=== PATIENT | male | born 1985 | race Caucasian/White ===

== ENCOUNTER 2024-01-24 16:05 | Emergency (ER) | payer SELFPAY ==
[2024-01-24 16:09] VITALS: BP 137/95; PULSE 68; RESP 17; TEMP 36.6; O2SAT 98; BMI 22.9
--- NOTE | 2024-01-24 16:25 | ED_ITS ---
HPI - Nausea/Vomiting/Diarrhea 2 General: Chief complaint: Nausea/Vomiting/Diarrhea Stated complaint: N/V Time Seen by Provider: 01/24/24 16:12 Source: patient Mode of arrival: ambulatory Limitations: no limitations History of Present Illness: 38-year-old male who states that he has been having some nausea and vomiting for the last week. States he had some mild epigastric discomfort times he denies any pain currently. He denies any diarrhea he denies any worse improved factors denies any fevers. Associated nausea: Yes Associated symtoms: Reports nausea; Denies chest pain, dysuria or headache(s) Related Data Previous Rx's Medication Instructions Recorded ondansetron 4 mg disintegrating 4 mg PO Q6H PRN nausea and 01/24/24 tablet vomiting #14 tabs Allergies Allergy/AdvReac Type Severity Reaction Status Date / Time No Known Allergies Allergy Verified 01/24/24 16:12 Review of Systems 2 Const: Denies: fever(s), chills, body aches or change in appetite ENMT: Denies: throat pain or dental pain Card: Denies: chest pain Resp: Denies: dyspnea GI: Reports: nausea and vomiting; Denies: abdominal pain or diarrhea : Denies: dysuria Musc: Denies: neck pain or back pain Skin/Breast: Denies: rash Neuro: Denies: headache(s) Physical Exam 2 Const: COMMON NORMALS: no acute distress, patient oriented x3 and healthy appearing HENMT: COMMON NORMALS: normocephalic and atraumatic HEAD & SCALP: n ormocephalic and atraumatic Neck/C-Spine: COMMON NORMALS: full ROM and supple Chest: COMMONS NORMALS: normal inspection of the chest Resp: COMMON NORMALS: normal respiratory effort Cardio: COMMON NORMALS: regular rate, regular rhythm and No murmurs present (Cardio) RATE: regular rate RHYTHM: regular rhythm GI: COMMON NORMALS: Normal to inspection, nondistended, normoactive bowel sounds present, Soft to palpation, non-tender and no masses PALPATION: Yes Soft to palpation Extremity: COMMON NORMALS: normal to inspection and full ROM Neuro: COMMON NORMALS: patient oriented x3, moves all extremities and no focal motor deficits Psych: COMMON NORMALS: mental status grossly normal, Normal thought process present and cooperative THOUGHT PROCESS: Normal thought process present Skin: COMMON NORMALS: no rashes or lesions noted and no wounds GENERAL SKIN EXAM: no rashes or lesions noted Course 2 Vital Signs: Vital signs: Vital Signs Temperature 97.9 F 01/24/24 16:09 Pulse Rate 60 01/24/24 18:00 Respiratory Rate 16 01/24/24 18:00 Blood Pressure 160/109 01/24/24 18:00 Pulse Oximetry 100 01/24/24 18:00 Oxygen Delivery Me thod Room Air 01/24/24 16:09 MDM - Nausea/Vomiting/Diarrhea Medical Decision Making Patient presents here with vomiting send some slight abdominal pain as well lab work imaging here is normal he is tolerating p.o. here after Zofran he is stable for discharge we will prescribe Zofran for home he is follow-up with PCP return if worsening. Medical Records I reviewed the patient's medical records. Lab Data I reviewed the patient's lab results. 01/24/24 16:31 01/24/24 16:31 Radiology Impressions Abdomen/Pelvis CT 01/24/24 17:[address]: [address] evidence of acute intra-abdominal or pelvic pathology. 2. Additional findings, as above. COMMENTS: Consistent with the [employer]'s Incidental Findings Committee white paper (J Am Micah Radiol 2018): Any incidental renal lesion less than 1 cm or classified as too small to characterize, or any incidental cystic renal lesion characterized as simple-appearing, is likely benign. No follow-up imaging is recommended for these lesions per consensus recommendations based on imaging criteria. Laboratory Results WBC 8.76 10^3/uL (3.29-11.43) 01/24/24 16:31 RBC 5.20 10^6/uL (3.85-5.65) 01/24/24 16:31 Hgb 16.30 g/dL (11.27-16.99) 01/24/24 16:31 Hct 46.6 % (37-53) 01/24/24 16:31 MCV 89.6 fl (82-101) 01/24/24 16:31 MCH 31.3 pg (27-33) 01/24/24 16:31 MCHC 35.0 g/dL (30-55) 01/24/24 16:31 RDW 12.0 % (12.1-15.1) L 01/24/24 16:31 Plt Count 260 10^3/cmm (157-399) 01/24/24 16:31 MPV 10.9 fL (7.4-10.4) H 01/24/24 16:31 Neut % (Auto) 47.0 % 01/24/24 16:31 Lymph % (Auto) 39.2 % 01/24/24 16:31 [place] % (Auto) 10.5 % 01/24/24 16:31 Eos % (Auto) 2.7 % 01/24/24 16:31 Baso % (Auto) 0.5 % 01/24/24 16:31 Neut # (Auto) 4.12 10^3/uL (1.8-7.7) 01/24/24 16:31 Lymph # (Auto) 3.4 10^3/uL (0.8-4.8) 01/24/24 16:31 [place] # (Auto) 0.9 10^3/uL (0.2-0.9) 01/24/24 16: Eos # (Auto) 0.2 10^3/uL (0.0-0.8) 01/24/24 16:31 Baso # (Auto) 0.0 10^3/uL (0.0-0.1) 01/24/24 16:31 Nucleated RBC % (auto) 0 % 01/24/24 16: Nucleated RBCs # 0.0 /100WBC 01/24/24 16:31 Sodium 143 mmol/L (136-145) 01/24/24 16:31 Potassium 4.0 mmol/L (3.5-5.1) 01/24/24 16:31 Chloride 101 mmol/L (98-107) 01/24/24 16:31 Carbon Dioxide 32 mmol/L (22-29) H 01/24/24 16:31 Anion Gap 14.0 (5-19) 01/24/24 16:31 BUN 11 mg/dL (6-20) 01/24/24 16:31 Creatinine 0.9 mg/dL (0.7-1.2) 01/24/24 16:31 GFR Calculation 95.5 mL/min (90-130) 01/24/24 16:31 Glucose 90 mg/dL (65-115) 01/24/24 16:31 Calculated Osmolality 295 mOsm/kg (285-295) 01/24/24 16:31 Calcium 9.7 mg/dL (8.5-10.5) 01/24/24 16:31 Total Bilirubin 0.4 mg/dL (0.15-1.2) 01/24/24 16:31 AST 37 U/L (0-40) 01/24/24 16:31 ALT 47 U/L (0-41) H 01/24/24 16:31 Alkaline Phosphatase 82 U/L (40-130) 01/24/24 16:31 Total Protein 7.7 g/dL (6.6-8.7) 01/24/24 16:31 Albumin 4.7 g/dL (3.5-5.2) 01/24/24 16: Globulin 3.0 g/dL (1.3-4.6) 01/24/24 16: Lipase 32 U/L (13-60) 01/24/24 16:31 Urine Color Yellow (Yellow) 01/24/24 16:31 Urine Appearance Cloudy (CLEAR) A 01/24/24 16:31 Urine pH 8.0 (5-7) A 01/24/24 16:31 Ur Specific [place] 1.014 (1.005-1.030) 01/24/24 16:31 Urine Protein Negative (Negative) 01/24/24 16:31 Urine Glucose (UA) Negative (Normal) 01/24/24 16:31 Urine Ketones Negative (Negative) 01/24/24 16:31 Urine Blood Negative (Negative) 01/24/24 16:31 Urine Nitrate Negative (Negative) 01/24/24 16:31 Urine Bilirubin Negative (Negative) 01/24/24 16:31 Urine Urobilinogen 1.0 mg/dL (Negative) 01/24/24 16:31 Ur Leukocyte Esterase Negative (Negative) 01/24/24 16:31 Urine RBC 0-2 /hpf (0-2) 01/24/24 16:31 Urine WBC 0-5 /hpf (0-5) 01/24/24 16:31 Ur Squamous Epith Cells 0-5 /hpf (0-5) 01/24/24 16:31 Amorphous Sediment Not Reportable 01/24/24 16:31 Urine Bacteria None seen /hpf (NONE) 01/24/24 16:31 Hyaline Casts 1.21 /lpf 01/24/24 16:31 All radiology interpretation(s) finalized by discharge Discharge Plan Discharge Patient Disposition: Home Clinical Impression: Vomiting Qualifiers: Vomiting type: unspecified Nausea presence: with nausea Qualified Code(s): R 11.2 - Nausea with vomiting, unspecified Condition: Stable Prescriptions: New ondansetron 4 mg tablet,disintegrating 4 mg PO Q6H PRN (Reason: nausea and vomiting) Qty: 14 0RF Discharge Orders: Discharge ED (Routine); Ordered 01/24/24 Ordered By: Radha Joya Discharge Diet: Advance as tolerated Discharge Activity: Resume usual activity Patient Instructions: Acute Nausea and Vomiting (ED) Coding Level of Care Code ED [employer] for Katey Kang
[2024-01-24 16:38] LABS: Basophils % 0.5 %; Eosinophils # 0.2 10^3/uL (0.0-0.8); Eosinophils % 2.7 %; Hematocrit 46.6 % (37-53); Lymphocytes # 3.4 10^3/uL (0.8-4.8); Lymphocytes % 39.2 %; Mean Corpuscular Hemoglobin 31.3 pg (27-33); Mean Corpuscular Volume 89.6 fl (82-101); Mean Platelet Volume 10.9 fL (7.4-10.4); Monocytes # 0.9 10^3/uL (0.2-0.9); Monocytes % 10.5 %; Neutrophils # 4.12 10^3/uL (1.8-7.7); Nucleated Red Blood Cells % 0 %; Platelet Count 260 10^3/cmm (157-399); White Blood Count 8.76 10^3/uL (3.29-11.43)
[2024-01-24] MEDS: ondansetron 2 mg/ML SDV 2 mL 4 MG IVP (16:47)
[2024-01-24] MEDS: sodium chloride 0.9% 1,000 ML 999 ML IV (16:47)
[2024-01-24 16:55] LABS: Alanine Aminotransferase 47 U/L (0-41); Albumin Level 4.7 g/dL (3.5-5.2); Alkaline Phosphatase 82 U/L (40-130); Aspartate Amino Transferase 37 U/L (0-40); Blood Urea Nitrogen 11 mg/dL (6-20); Calcium 9.7 mg/dL (8.5-10.5); Carbon Dioxide 32 mmol/L (22-29); Chloride 101 mmol/L (98-107); Creatinine Clr Calc Pharmacy 116.8877; Glomerular Filtration Rate 95.5 mL/min (90-130); Glucose 90 mg/dL (65-115); Lipase 32 U/L (13-60); Osmolality Calculated 295 mOsm/kg (285-295); Sodium 143 mmol/L (136-145); Total Bilirubin 0.4 mg/dL (0.15-1.2); Total Protein 7.7 g/dL (6.6-8.7)
[2024-01-24] MEDS: morphine 4 mg/mL SDV 1 mL IVP (17:04)
[2024-01-24 17:14] VITALS: BP 145/102; PULSE 77; RESP 16; O2SAT 100
[2024-01-24 17:22] LABS: Charge for UA Resulting for Rev
--- NOTE | 2024-01-24 17:27 | CTR_ITS ---
PROCEDURE INFORMATION: Exam: CT Abdomen And Pelvis With Contrast Exam date and time: 01/24/2024 5:40 PM Age: 38 years old Clinical indication: Abdominal tenderness and nausea and vomiting; Additional info: Abd pain TECHNIQUE: Imaging protocol: Computed tomography of the abdomen and pelvis with contrast. Axial, coronal and sagittal reformatted images were created and reviewed. Radiation optimization: All CT scans at this facility use at least one of these dose optimization techniques: automated exposure control; mA and/or kV adjustment per patient size (includes targeted exams where dose is matched to clinical indication); or iterative reconstruction. Contrast material: OMNI 350; Contrast volume: 100 ml; Contrast route: INTRAVENOUS (IV); COMPARISON: No relevant prior studies available. RADIATION DOSE METRICS: Total DLP (mGy-cm): 348 FINDINGS: Liver: Unremarkable. Gallbladder and biliary ducts: No radiodense gallstones. No biliary ductal dilatation. Pancreas: Unremarkable. Spleen: Unremarkable. Adrenal glands: Normal. No mass. Kidneys and ureters: 4 mm low-density right renal lesion, too small to characterize. Punctate nonobstructing right renal calculus. No hydronephrosis. Stomach and bowel: Moderate amount of retained stool in the colon. No obstruction. No bowel wall thickening. No pneumatosis. Appendix: Appendix not identified with certainty but no right lower quadrant inflammatory change to suggest acute appendicitis. Intraperitoneal space: No free fluid. No organized fluid collection. No free air. Vasculature: Unremarkable. No aneurysm. Lymph nodes: No pathologically enlarged lymph nodes. Urinary bladder: Mild circumferential urinary bladder wall thickening, likely secondary to underdistention. Reproductive: Unremarkable. Bones/joints: No acute osseous abnormality. Soft tissues: Unremarkable. CT/CT abdomen pelvis w con* [id number] IMPRESSION: 1. No CT evidence of acute intra-abdominal or pelvic pathology. 2. Additional findings, as above. COMMENTS: Consistent with the [employer]'s Incidental Findings Committee white paper (J Am Micah Radiol 2018): Any incidental renal lesion less than 1 cm or classified as too small to characterize, or any incidental cystic renal lesion characterized as simple-appearing, is likely benign. No follow-up imaging is recommended for these lesions per consensus recommendations based on imaging criteria.
[2024-01-24] MEDS: HYDROmorphone 1 mg/mL INJ 1 mL 0.5 MG IVP (17:33)
[2024-01-24 17:37] LABS: Bilirubin Urine Negative (Negative); Blood Urine Negative (Negative); Glucose Urine UA Negative (Normal); Ketones Urine Negative (Negative); Leukocyte Esterase Urine Negative (Negative); Nitrate Urine Negative (Negative); Protein Urine Negative (Negative); Specific Gravity, Urine 1.014 (1.005-1.030); Urine Appearance Cloudy (CLEAR); Urine Color Yellow (Yellow)
[2024-01-24 17:43] LABS: Bacteria Urine None Seen /hpf; Hyaline Casts Urine 1.21 /lpf; RBC Urine 0-2 /hpf (0-2); Squamous Epithelial Cell Urine 0-5 /hpf (0-5); WBC Urine 0-5 /hpf (0-5)
[2024-01-24] MEDS: iohexol 350 mg/mL 500 mL Btl (per mL) IV (17:43)
[2024-01-24 18:00] VITALS: BP 160/109; PULSE 60; RESP 16; O2SAT 100
== END 2024-01-24 18:17 | disposition home or self-care (01) ==
PROVIDERS: Emergency Provider Emergency Medicine
DX: R11.2 Nausea with vomiting, unspecified (principal)
CPT/HCPCS: 74177; 80053; 81003; 81015; 83690; 85025; 96361; 96374; 96375; 99285; J1170; J2270; J2405; J7030; Q9967